=== PATIENT | male | born 1945 | race Caucasian/White ===

== ENCOUNTER 2021-04-26 09:28 | Outpatient (CLI) | payer MEDICARE, BC ==
[2021-04-26 19:24] LABS: SARS-CoV-2 PCR by NAA Not Detected (NotDetected)
== END 2021-04-26 09:29 | disposition home or self-care (01) ==
LOC: CSHLAB 09:28
PROVIDERS: ATTEND Internal Medicine Critical Care Medicine
DX: Z20.822 Contact with and (suspected) exposure to COVID-19 (principal)
CPT/HCPCS: U0003; U0005

== ENCOUNTER 2023-02-10 17:07 | Inpatient (IN) | payer MEDICARE, BC ==
[2023-02-10 18:57] LABS: Bilirubin Neg (Negative); Blood, Urine 250 (Negative); Clarity Mucous (Clear); Glucose, Urine (Dipstick) Normal (Negative); Ketone, Urine Negative (Negative); Leukocyte 500 (Negative); Nitrite Negative (Negative); Protein, Urine (Dipstick) 100 mg/dl (Neg-Trace); Specific Gravity, Urine 1.015 (1.005-1.030); Urobilinogen Normal mg/dL (Less than 2)
[2023-02-10 19:01] LABS: #Monocytes 1.3 10x3/uL (0.0-1.1); #Neutrophils 7.5 10x3/uL (1.5-8.4); %Basophils 0.3 % (0.0-2.0); %Eosinophils 0.1 % (0.0-6.0); %Lymphocytes 10.9 % (18.0-47.0); %Monocytes 12.7 % (0.0-10.0); %Neutrophils 75.6 % (40.0-75.0); Hematocrit 35.4 % (38.8-50.0); Hemoglobin 11.7 g/dL (13.5-17.5); Mean Corpuscular HGB CONC 33.1 g/dL (32.0-36.0); Mean Corpuscular Hemoglobin 31.4 pg (27.0-33.0); Mean Corpuscular Volume 94.9 fl (81.2-95.1); Mean Platelet Volume 11.4 fl (7.4-10.4); Platelet Count 144 10x3/uL (150-450); Red Blood Cell (RBC) Count 3.73 10x6/uL (4.32-5.72); White Blood Cell (WBC) Count 9.9 10x3/uL (3.5-10.5)
[2023-02-10 19:06] LABS: Bacteria/HPF 4+ HPF (None Seen); CAUTI Indications for Culture Alt mental st,lethar; RBC/HPF Greater than 50 HPF (0-3); Squamous Epithelial None Seen HPF (0-3); WBC/HPF Greater Than 50 HPF (0-3)
[2023-02-10 19:07] LABS: Urine Culture Reflex Yes Yes
[2023-02-10 19:21] LABS: ALT (SGPT) 39 U/L (8-55); AST (SGOT) 25 U/L (5-34); Albumin 4.6 g/dL (3.4-4.8); Alkaline Phosphatase 43 U/L (40-110); Anion Gap 21 mmol/L (10-20); BUN (Urea Nitrogen) 41 mg/dL (8.4-25.7); Bilirubin, Total 0.6 mg/dL (0.2-1.2); Calc. Creatinine Clearance 0 mL/min (70-130); Calcium 10.1 mg/dL (7.8-10.44); Carbon Dioxide 26 mmol/L (23-31); Chloride 94 mmol/L (98-107); Estimated GFR 8; Globulin 3.6 g/dL (2.4-3.5); Glucose 85 mg/dL (83-110); Magnesium 2.2 mg/dL (1.6-2.6); Potassium 4.3 mmol/L (3.5-5.1); Protein, Total 8.2 g/dL (5.8-8.1); Sodium 137 mmol/L (136-145)
[2023-02-10 19:31] LABS: Troponin I 0.274 ng/mL (< 0.028)
[2023-02-10] MEDS ORDERED: Cefepime 2 GM VIAL ONE (19:32)
[2023-02-10] MEDS ORDERED: Acetaminophen 500 MG TAB ONE (19:56)
[2023-02-10 21:54] LABS: Lactic Acid 1.9 mmol/L (0.5-2.2)
[2023-02-10] MEDS ORDERED: Aspirin Chewable 81 MG TAB ONE (21:56)
[2023-02-10] MEDS ORDERED: Senokot S 8.6-50 MG TAB PO PRN (23:49)
[2023-02-10] MEDS ORDERED: HumaLOG 300 UNITS/3 ML VIAL SC PRN (23:49)
[2023-02-10] MEDS ORDERED: Dextrose 50% Abboject 50 ML SYRINGE SLOW IVP PRN (23:49)
[2023-02-10] MEDS ORDERED: Calcium Carbonate 500 MG ChewTAB PO PRN (23:49)
[2023-02-10] MEDS ORDERED: Glucagon 1 MG/ML KIT IM PRN (23:49)
[2023-02-10] MEDS ORDERED: Dextrose 5% in Water 1,000 ML IV PRN (23:49)
[2023-02-10] MEDS ORDERED: Ipratropium/Albuterol 3 ML NEB NEB PRN (23:57)
[2023-02-11] MEDS ORDERED: Sodium Chloride 0.9% 500 ML IV SCH (01:00)
[2023-02-11] MEDS ORDERED: Albumin 25% 25 GM/100 ML BOT IVPB SCH (01:00)
[2023-02-11 01:03] VITALS: BMI 30.4
[2023-02-11] MEDS ORDERED: Vancomycin Dialysis Sliding Scale (Wt > 99) FS SCH (01:15)
[2023-02-11] MEDS ORDERED: VANCOMYCIN 2 GRAM/400 ML BAG 2 GM in Premix 1 BAG IVPB SCH (01:30)
[2023-02-11 07:02] LABS: Anion Gap 21 mmol/L (10-20); BUN (Urea Nitrogen) 49 mg/dL (8.4-25.7); Calc. Creatinine Clearance 12 mL/min (70-130); Calcium 8.6 mg/dL (7.8-10.44); Carbon Dioxide 22 mmol/L (23-31); Chloride 100 mmol/L (98-107); Estimated GFR 7; Potassium 3.8 mmol/L (3.5-5.1); Sodium 139 mmol/L (136-145)
[2023-02-11 07:02] LABS: #Monocytes 1.2 10x3/uL (0.0-1.1); #Neutrophils 5.8 10x3/uL (1.5-8.4); %Basophils 0.2 % (0.0-2.0); %Eosinophils 0.3 % (0.0-6.0); %Lymphocytes 20.1 % (18.0-47.0); %Monocytes 13.3 % (0.0-10.0); %Neutrophils 65.4 % (40.0-75.0); Hematocrit 29.1 % (38.8-50.0); Hemoglobin 9.4 g/dL (13.5-17.5); Mean Corpuscular HGB CONC 32.3 g/dL (32.0-36.0); Mean Platelet Volume 11.3 fl (7.4-10.4); Platelet Count 115 10x3/uL (150-450); RBC Distribution Width 13.3 % (11.5-14.5); Red Blood Cell (RBC) Count 3.03 10x6/uL (4.32-5.72); White Blood Cell (WBC) Count 8.8 10x3/uL (3.5-10.5)
[2023-02-11 07:07] LABS: Glucose 52 mg/dL (83-110)
[2023-02-11 07:12] LABS: Troponin I 0.281 ng/mL (< 0.028)
[2023-02-11 08:54] LABS: Platelet Adequacy Comment Appears Decreased
[2023-02-11] MEDS ORDERED: Heparin 5,000 UNITS/ML VIAL SC SCH (09:00)
[2023-02-11] MEDS: Dextrose 5%-Lactated Ringers 1,000 ML IV SCH (09:37)
[2023-02-11] MEDS: Aspirin 81 mg Enteric Coated Tablet PO SCH (09:41)
[2023-02-11] MEDS: Acetaminophen 325 MG TAB PO PRN (21:10)
[2023-02-11] MEDS: Atorvastatin Calcium 40 MG TAB PO SCH (21:10)
[2023-02-11] MEDS: Cefepime 0.5 GM, Admixture Fee 1 EACH in Sodium Chloride 0.9% 50 ML IVPB SCH (21:10)
[2023-02-11] MEDS: Heparin 5,000 UNITS/ML VIAL SC SCH (21:13)
[2023-02-11] MEDS: Latanoprost 0.005% Ophth Soln 2.5 ml Bottle EA EYE SCH (21:49)
[2023-02-11] MEDS: Guaifenesin DM 100-10/5 ML UDCUP PO PRN (23:59)
[2023-02-12 04:33] LABS: #Monocytes 0.9 10x3/uL (0.0-1.1); #Neutrophils 7.2 10x3/uL (1.5-8.4); %Basophils 0.4 % (0.0-2.0); %Eosinophils 0.3 % (0.0-6.0); %Lymphocytes 16.6 % (18.0-47.0); %Monocytes 8.7 % (0.0-10.0); %Neutrophils 73.5 % (40.0-75.0); Hematocrit 28.9 % (38.8-50.0); Hemoglobin 9.5 g/dL (13.5-17.5); Mean Corpuscular HGB CONC 32.9 g/dL (32.0-36.0); Mean Corpuscular Hemoglobin 31.4 pg (27.0-33.0); Mean Corpuscular Volume 95.4 fl (81.2-95.1); Platelet Count 106 10x3/uL (150-450); RBC Distribution Width 13.4 % (11.5-14.5); Red Blood Cell (RBC) Count 3.03 10x6/uL (4.32-5.72); White Blood Cell (WBC) Count 9.9 10x3/uL (3.5-10.5)
[2023-02-12 04:58] LABS: Anion Gap 22 mmol/L (10-20); BUN (Urea Nitrogen) 68 mg/dL (8.4-25.7); Calc. Creatinine Clearance 10 mL/min (70-130); Calcium 8.3 mg/dL (7.8-10.44); Carbon Dioxide 16 mmol/L (23-31); Chloride 97 mmol/L (98-107); Estimated GFR 6; Glucose 150 mg/dL (83-110); Sodium 131 mmol/L (136-145)
[2023-02-12 04:59] LABS: Ovalocytes SLIGHT = 2-5 cells (100X) (0-1/hpf); Platelet Adequacy Comment Appears Decreased
[2023-02-12] MEDS: Acetaminophen 325 MG TAB PO PRN ×3 (05:57→23:24)
[2023-02-12 07:18] LABS: Vancomycin, Random 20.7 ug/mL (See Comment)
[2023-02-12] MEDS: Metoprolol Tartrate 25 MG TAB PO SCH ×2 (08:11→19:26)
[2023-02-12] MEDS: Latanoprost 0.005% Ophth Soln 2.5 ml Bottle EA EYE SCH ×2 (09:33→19:27)
[2023-02-12] MEDS: Dextrose 5%-Lactated Ringers 1,000 ML IV SCH (09:34)
[2023-02-12] MEDS: Aspirin 81 mg Enteric Coated Tablet PO SCH (09:34)
[2023-02-12] MEDS: Heparin 5,000 UNITS/ML VIAL SC SCH ×2 (09:35→19:32)
[2023-02-12 13:52] LABS: HBSAg Index 0.41 S/CO (0-0.99); Hep B Surf Ag Non-Reactive S/CO (NonReactive)
[2023-02-12] MEDS ORDERED: Heparin 10,000 UNITS/ 10 ML VIAL SLOW IVP PRN (16:25)
[2023-02-12] MEDS: Atorvastatin Calcium 40 MG TAB PO SCH (19:26)
[2023-02-12] MEDS: Cefepime 0.5 GM, Admixture Fee 1 EACH in Sodium Chloride 0.9% 50 ML IVPB SCH (19:26)
[2023-02-12] MEDS: Ondansetron PF 4 MG/2 ML Vial IVP PRN (20:30)
[2023-02-13 04:16] LABS: #Monocytes 0.7 10x3/uL (0.0-1.1); #Neutrophils 5.5 10x3/uL (1.5-8.4); %Basophils 0.3 % (0.0-2.0); %Eosinophils 0.5 % (0.0-6.0); %Lymphocytes 16.6 % (18.0-47.0); %Monocytes 9.7 % (0.0-10.0); %Neutrophils 72.4 % (40.0-75.0); Hematocrit 27.5 % (38.8-50.0); Hemoglobin 9.2 g/dL (13.5-17.5); Mean Corpuscular HGB CONC 33.5 g/dL (32.0-36.0); Mean Corpuscular Hemoglobin 31.5 pg (27.0-33.0); Mean Corpuscular Volume 94.2 fl (81.2-95.1); Mean Platelet Volume 11.9 fl (7.4-10.4); Platelet Count 107 10x3/uL (150-450); Red Blood Cell (RBC) Count 2.92 10x6/uL (4.32-5.72); White Blood Cell (WBC) Count 7.6 10x3/uL (3.5-10.5)
[2023-02-13 04:24] LABS: Anion Gap 19 mmol/L (10-20); BUN (Urea Nitrogen) 63 mg/dL (8.4-25.7); Calc. Creatinine Clearance 11 mL/min (70-130); Calcium 8.5 mg/dL (7.8-10.44); Carbon Dioxide 23 mmol/L (23-31); Chloride 97 mmol/L (98-107); Estimated GFR 7; Glucose 157 mg/dL (83-110); Sodium 135 mmol/L (136-145)
[2023-02-13 04:50] LABS: Platelet Adequacy Comment Appears Decreased; RBC Morph Comment Within Normal Limits
[2023-02-13 05:52] LABS: HBSAB Concentration 9.99 mIU/mL; Hep B Surf AB Indeterminate (NonReactive)
[2023-02-13] MEDS: Heparin 5,000 UNITS/ML VIAL SC SCH ×2 (09:33→22:09)
[2023-02-13] MEDS: Aspirin 81 mg Enteric Coated Tablet PO SCH (09:58)
[2023-02-13] MEDS: Latanoprost 0.005% Ophth Soln 2.5 ml Bottle EA EYE SCH ×2 (09:59→22:11)
[2023-02-13] MEDS: Metoprolol Tartrate 25 MG TAB PO SCH ×2 (09:59→22:08)
[2023-02-13] MEDS: Amlodipine 5 MG TAB PO SCH (10:04)
[2023-02-13] MEDS: cefTRIAXone\\ROCEPHIN 1 GM in Sodium Chloride 0.9% 100 ML IVPB SCH (12:37)
[2023-02-13] MEDS: Guaifenesin DM 100-10/5 ML UDCUP PO PRN (15:51)
[2023-02-13 18:24] LABS: SARS-CoV-2 NAA Rapid Test DETECTED (NotDetected)
[2023-02-13] MEDS: Atorvastatin Calcium 40 MG TAB PO SCH (22:08)
[2023-02-14] MEDS: Guaifenesin DM 100-10/5 ML UDCUP PO PRN (00:31)
[2023-02-14] MEDS ORDERED: Loperamide HCl 2 MG CAP PO SCH (01:00)
[2023-02-14 03:59] LABS: #Eosinphils 0.3 10x3/uL (0.0-0.5); #Monocytes 0.7 10x3/uL (0.0-1.1); #Neutrophils 7.7 10x3/uL (1.5-8.4); %Basophils 0.3 % (0.0-2.0); %Eosinophils 3.4 % (0.0-6.0); %Lymphocytes 13.2 % (18.0-47.0); %Monocytes 6.6 % (0.0-10.0); %Neutrophils 76.1 % (40.0-75.0); Hematocrit 30.8 % (38.8-50.0); Hemoglobin 10.2 g/dL (13.5-17.5); Mean Corpuscular HGB CONC 33.1 g/dL (32.0-36.0); Mean Corpuscular Volume 96.6 fl (81.2-95.1); Mean Platelet Volume 11.7 fl (7.4-10.4); Platelet Count 133 10x3/uL (150-450); RBC Distribution Width 12.9 % (11.5-14.5); Red Blood Cell (RBC) Count 3.19 10x6/uL (4.32-5.72); White Blood Cell (WBC) Count 10.1 10x3/uL (3.5-10.5)
[2023-02-14 04:08] LABS: Anion Gap 24 mmol/L (10-20); BUN (Urea Nitrogen) 85 mg/dL (8.4-25.7); Calc. Creatinine Clearance 9 mL/min (70-130); Calcium 8.8 mg/dL (7.8-10.44); Carbon Dioxide 19 mmol/L (23-31); Chloride 95 mmol/L (98-107); Estimated GFR 5; Glucose 105 mg/dL (83-110); Potassium 4.3 mmol/L (3.5-5.1); Sodium 134 mmol/L (136-145)
[2023-02-14] MEDS: Ondansetron PF 4 MG/2 ML Vial IVP PRN (07:25)
[2023-02-14] MEDS: Aspirin 81 mg Enteric Coated Tablet PO SCH (09:05)
[2023-02-14] MEDS: Amlodipine 5 MG TAB PO SCH (09:06)
[2023-02-14] MEDS: Metoprolol Tartrate 25 MG TAB PO SCH ×2 (09:07→20:11)
[2023-02-14] MEDS: Heparin 5,000 UNITS/ML VIAL SC SCH ×2 (09:08→20:10)
[2023-02-14] MEDS: Latanoprost 0.005% Ophth Soln 2.5 ml Bottle EA EYE SCH ×2 (09:17→21:36)
[2023-02-14] MEDS: cefTRIAXone\\ROCEPHIN 1 GM in Sodium Chloride 0.9% 100 ML IVPB SCH (11:55)
[2023-02-14 13:31] LABS: Lactic Acid 1.6 mmol/L (0.5-2.2)
[2023-02-14] MEDS ORDERED: Diphenoxylate HCl/Atropine Tablet PO PRN (14:47)
[2023-02-14] MEDS ORDERED: Loperamide HCl 2 MG CAP PO PRN (14:47)
[2023-02-14] MEDS ORDERED: Opium Tincture 10% (1ml Charge) PO SCH (14:48)
[2023-02-14] MEDS: Atorvastatin Calcium 40 MG TAB PO SCH (20:11)
[2023-02-15 04:28] LABS: #Eosinphils 0.1 10x3/uL (0.0-0.5); #Monocytes 0.6 10x3/uL (0.0-1.1); #Neutrophils 3.1 10x3/uL (1.5-8.4); %Basophils 0.2 % (0.0-2.0); %Eosinophils 1.6 % (0.0-6.0); %Lymphocytes 23.6 % (18.0-47.0); Hematocrit 24.3 % (38.8-50.0); Hemoglobin 8.2 g/dL (13.5-17.5); Mean Corpuscular HGB CONC 33.7 g/dL (32.0-36.0); Mean Corpuscular Hemoglobin 32.2 pg (27.0-33.0); Mean Corpuscular Volume 95.3 fl (81.2-95.1); Mean Platelet Volume 12.2 fl (7.4-10.4); Platelet Count 112 10x3/uL (150-450); RBC Distribution Width 12.9 % (11.5-14.5); Red Blood Cell (RBC) Count 2.55 10x6/uL (4.32-5.72)
[2023-02-15 04:38] LABS: Anion Gap 21 mmol/L (10-20); BUN (Urea Nitrogen) 41 mg/dL (8.4-25.7); Calc. Creatinine Clearance 15 mL/min (70-130); Calcium 7.9 mg/dL (7.8-10.44); Carbon Dioxide 27 mmol/L (23-31); Chloride 95 mmol/L (98-107); Estimated GFR 9; Glucose 142 mg/dL (83-110); Potassium 3.7 mmol/L (3.5-5.1); Sodium 139 mmol/L (136-145)
[2023-02-15 04:48] LABS: Ovalocytes SLIGHT = 2-5 cells (100X) (0-1/hpf); Platelet Adequacy Comment Appears Decreased
[2023-02-15] MEDS ORDERED: EPOETIN ALFA-EPBX (ESRD) 10,000 UNITS/ML VIAL SC SCH (06:30)
[2023-02-15] MEDS: Amlodipine 5 MG TAB PO SCH (09:00)
[2023-02-15] MEDS: Latanoprost 0.005% Ophth Soln 2.5 ml Bottle EA EYE SCH (09:00)
[2023-02-15] MEDS: Heparin 5,000 UNITS/ML VIAL SC SCH (09:00)
[2023-02-15] MEDS: Metoprolol Tartrate 25 MG TAB PO SCH (09:24)
[2023-02-15] MEDS: Aspirin 81 mg Enteric Coated Tablet PO SCH (09:24)
[2023-02-15 09:48] VITALS: BP 126/59; TEMP 97.5
[2023-02-15] MEDS: cefTRIAXone\\ROCEPHIN 1 GM in Sodium Chloride 0.9% 100 ML IVPB SCH (11:15)
== END 2023-02-15 12:15 | disposition home or self-care (01) | DRG 871 ==
LOC: CSHERS 17:07 → CSHTELE 21:51
PROVIDERS: ADMIT Student in an Organized Health Care Education/Training Program; ATTEND Physician Assistant Medical
PROC: 3E03329 Introduction of Other Anti-infective into Peripheral Vein, Percutaneous Approach (ICD-10-PCS; principal; 2023-02-10)
PROC: 30233J1 Transfusion of Nonautologous Serum Albumin into Peripheral Vein, Percutaneous Approach (ICD-10-PCS; 2023-02-10)
DX: A41.9 Sepsis, unspecified organism (principal); G93.41 Metabolic encephalopathy; N18.6 End stage renal disease; I21.A1 Myocardial infarction type 2; U07.1 COVID-19; I12.0 Hypertensive chronic kidney disease with stage 5 chronic kidney disease or end stage renal disease; N12 Tubulo-interstitial nephritis, not specified as acute or chronic; E87.20 Acidosis, unspecified; E11.22 Type 2 diabetes mellitus with diabetic chronic kidney disease; Z98.890 Other specified postprocedural states; E78.5 Hyperlipidemia, unspecified; Z99.2 Dependence on renal dialysis; D63.1 Anemia in chronic kidney disease; D69.6 Thrombocytopenia, unspecified; M79.89 Other specified soft tissue disorders; Z90.49 Acquired absence of other specified parts of digestive tract; Z79.899 Other long term (current) drug therapy; Z85.51 Personal history of malignant neoplasm of bladder; E11.51 Type 2 diabetes mellitus with diabetic peripheral angiopathy without gangrene; Z79.82 Long term (current) use of aspirin; Z79.4 Long term (current) use of insulin; Z79.01 Long term (current) use of anticoagulants; H40.9 Unspecified glaucoma; E11.649 Type 2 diabetes mellitus with hypoglycemia without coma
CPT/HCPCS: 0241U; 36415; 36416; 70450; 71045; 74018; 74176; 80048; 80053; 80202; 81001; 83605; 83735; 84484; 85025; 86706; 87040; 87070; 87077; 87086; 87186; 87205; 87324; 87340; 87449; 87633; 87798; 88112; 90935; 93005; 93306; 93970; 94760; 94762; 96365; G0257; J0692; J0696; J1644; J2405; J3370; J3490; J7030; J7070; J7999; P9047